=== PATIENT | male | born 1975 | race Caucasian/White ===

== ENCOUNTER → 2025-03-26 | Outpatient (CLI) | payer SELFPAY ==
--- NOTE | 2025-03-26 13:46 | CT_ITS ---
PROCEDURE: CT/Limited Chest CT Cardiac Only
--- NOTE | 2025-03-26 17:57 | CA.SCORE ---
Calcium Scoring Date of Study:: 03/26/25 Indications Indications: Coronary artery screening Coronary Calcium Scoring: High-resolution Computed Tomographic imaging of the chest was performed on [03/26/2025], with particular attention paid to the coronary arteries. Images from the examination were analyzed for the presence and extent of coronary artery calcification , using coronary calcium quantification software. The patient tolerated the procedure well and there were no complications. The results of the coronary calcification analysis are provided below. Findings Coronary Artery Left Main (LM): 0 Left Anterior Descending (LAD): 1.27 Left Circumflex (LCX): 0 Right Coronary Artery (RCA): 0 Total Agatston Score: 1.27 Percentile Rankinth-50th Calcium Scoring Interpretation: Different methods to categorize the overall amount of coronary plaque. Overall amount CAC SIS Visual of coronary plaque P1 Mild -100 <2 1-2 vessels with mild amount of plaque P2 Moderate 101-300 3-4 1-2 vessels with moderate amount, 3 vessels with mild amount of plaque P3 Severe 301-999 5-7 3 vessels with moderate amount, 1 vessel with severe amount of plaque P4 Extensive >1000 >8 2-3 vessels with severe amount of plaque Conclusion: Minimal focal plaque noted in LAD.
== END | disposition home or self-care (01) ==
PROVIDERS: PCP Family Medicine; Referring Provider Nurse Practitioner Family; Visit Provider Nurse Practitioner Family
DX: Z13.6 Encounter for screening for cardiovascular disorders (principal)
CPT/HCPCS: 75571; 76380